=== PATIENT | male | born 1995 | race American Indian/Alaskan Native ===

== ENCOUNTER 2020-09-05 10:48 | Emergency (ER) | payer SELFPAY ==
[2020-09-05 11:03] VITALS: BP 129/84
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
== END 2020-09-05 13:46 | disposition left against medical advice (07) ==
LOC: ED 10:48
DX: Z00.8 Encounter for other general examination (principal); Z53.21 Procedure and treatment not carried out due to patient leaving prior to being seen by health care provider